=== PATIENT | female | born 1930 | race Caucasian/White ===

== ENCOUNTER 2016-10-25 22:16 | Observation (INO) ==
[2016-10-25] MEDS ORDERED: ALTEPLASE IVP ONE (22:25)
[2016-10-25] MEDS ORDERED: ALTEPLASE IVPB ONE (22:25)
--- NOTE | 2016-10-25 22:38 | Emergency Department Note ---
Disposition Clinical Impression: Thyroid nodule CVA (cerebral vascular accident) Qualifiers: CVA mechanism: unspecified Qualified Code(s): I63.9 - Cerebral infarction, unspecified Disposition: Admitted As Inpatient Condition: Good Referrals: Priscilla Barker MD [Primary Care Provider] - Forms: ED Satisfaction Letter Neuro HPI - General Chief Complaint: ED Neuro Symptoms/Deficit Stated Complaint: Vision changes and facial numbness Time Seen by Provider: 10/25/16 22:25 Source: patient Mode of arrival: private vehicle Limitations: no limitations Nursing Notes Reviewed: Yes Vital Signs Reviewed: Yes - History of Present Illness HPI Narrative: 85-year-old female presents to the ER with a chief complaint of visual changes and right facial numbness. Patient reports she was watching TV this evening when she noted blurry vision. She states she got up with her noticed that she had a right facial droop. Patient drove herself to the ER for evaluation. She denies a history of previous CVA in the past. Symptoms began at 8 PM. She was previously on anticoagulation for A. fib in the hospital but that resolved and she stopped anticoagulation. She complains of visual changes and right facial droop. No other complaints. Onset of Symptoms Date: 10/25/16 Onset of Symptoms Time: 20:00 Symptom Onset Unknown: No Location: right face History of same: No Severity: mild Symptoms Improving: No Improves with: none Worsens with: none Context: sudden onset On Anticoagulants: No Associated symptoms: Reports: denies other symptoms Treatments Prior to Arrival: none - Related Data Home Medications: Home Medications Medication Instructions Recorded Confirmed Calcium Carbonate [Calcium] 600 mg PO BID 03/07/16 04/14/16 Cholecalciferol (D-3) [Vitamin D] 1,000 unit PO DAILY 03/07/16 04/14/16 Diclofenac Sodium [Voltaren] 2 gm TD QID 03/07/16 04/14/16 Fenoprofen Calcium 600 mg PO BID 03/07/16 04/14/16 Multivit-Min/FA/Lycopen/Lutein 1 tab PO DAILY 03/07/16 04/14/16 [Centrum Silver Tablet] [place]-3/Dha/Epa/Fish Oil [Fish Oil 1 cap PO HS 03/07/16 04/14/16 1,000 mg Softgel] Solifenacin Succinate [Vesicare] 2.5 mg PO DAILY 03/07/16 04/14/16 Spironolactone [Aldactone] 50 mg PO DAILY 03/07/16 04/14/16 Previous Rx's Medication Instructions Recorded Ciprofloxacin [Cipro] 500 mg PO BID #14 tablet 04/17/16 OxyCODONE/APAP 5/325 [Percocet 0.5 tab PO HS #20 tablet 04/17/16 5/325 MG] Rivaroxaban [Xarelto] 15 mg PO DAILY #30 tablet 04/17/16 Triamcinolone Acet Dentl Paste 20 appl DT TID #1 tube 08/11/16 [Kenalog In Orabase] Allergies/Adverse Reactions: Allergies Allergy/AdvReac Type Severity Reaction Status Date / Time cephalexin [From Keflex] AdvReac YEAST Verified 03/07/16 10:10 INFECTION Cephalosporins AdvReac CONFUSED Verified 03/07/16 10:10 diazepam [From Valium] AdvReac CONFUSED Verified 03/07/16 10:10 gabapentin [From Neurontin] AdvReac CONFUSED Verified 03/07/16 10:10 ibuprofen [From Motrin] AdvReac SHORTNESS Verified 03/07/16 10:10 OF BREATH meloxicam [From Mobic] AdvReac CONFUSED Verified 03/07/16 10:10 meperidine [From Demerol] AdvReac Hypotension Verified 03/07/16 10:10 morphine AdvReac makes her Verified 03/07/16 10:10 sleep nifedipine AdvReac RAISED Verified 03/07/16 10:10 BLOOD PRESSURE pregabalin [From Lyrica] AdvReac SWELLING Verified 03/07/16 10:10 All systems ED: reviewed and negative except as stated. Eyes: Reports: vision change Cardiovascular: Denies: chest pain Respiratory: Denies: dyspnea Gastrointestinal: Denies: abdominal pain, nausea, vomiting Musculoskeletal: Reports: neck pain Neurological: Denies: headache, numbness, paresthesias Past Medical History - Past Medical History Attestation: Yes The following information was validated with the patient. Source: patient Medical history: Reports: other Surgical history: Reports: non-contributory Psychiatric history: Reports: no psych history BUTCHER HEAD history: Reports: no BUTCHER HEAD history - Social History Smoking Status: Never smoker Smokeless Tobacco Status: No Alcohol use: Reports: none Drug use: Reports: none Physical Exam - General Limitations: no limitations General appearance: alert, in no apparent distress - Head Head exam: atraumatic, normocephalic, normal inspection - Eye Eye exam: Present: normal appearance, PERRL, EOMI, miosis - ENT ENT exam: normal exam - Neck Neck exam: Present: normal inspection, full ROM - Chest Chest inspection: Present: normal inspection, symmetric chest wall rise - Respiratory Respiratory exam: Present: normal lung sounds bilaterally - Cardiovascular Cardiovascular exam: Present: regular rate, normal rhythm, normal heart sounds - Abdominal Exam Abdominal exam: Present: soft, Non-Tender. Absent: tenderness - Extremities Exam Extremities exam: Present: normal inspection, full ROM - Expanded Upper Extremity Exam Shoulder exam: Present: normal inspection, full ROM Arm exam: Present: normal inspection, full ROM Elbow exam: Present: normal inspection, full ROM Forearm/Wrist exam: Present: normal inspection, full ROM Hand exam: Present: normal inspection, full ROM - Expanded Lower Extremity Exam Hip/Pelvis exam: Present: normal inspection, full ROM Upper leg exam: Present: normal inspection, full ROM Knee exam: Present: normal inspection, full ROM Lower leg exam: Present: normal inspection, full ROM Ankle exam: Present: normal inspection, full ROM Foot/toe exam: Present: normal inspection, full ROM Neurovascular/Tendon exam: Absent: motor deficit, sensory deficit - Neurological Exam Neurological exam: Present: alert, oriented X3, CN II-XII intact (With the exception of decreased sensation in the mandibular portion of V5.) - Expanded Neurological Exam Patient oriented to: Present: person, place, time Speech: Present: fluid speech Cranial nerves: EOM function (II, III, IV, ): Normal, facial sensation (V): Abnormal Right, spinal accessory function (XI): Normal, tongue deviation (XII): Normal Cerebellar function: finger to nose: Normal, heel to alonso: Normal Motor strength - LUE: 5/5 Motor strength - RUE: 5/5 Motor strength - LLE: 5/5 Motor strength - RLE: 5/5 Upper motor neuron exam: thang neglect: Absent bilaterally, pronator drift: Absent bilaterally Sensory exam upper extremity: light touch: Normal Sensory exam lower extremity: light touch: Abnormal Left, Abnormal Right ( Chronic from neuropathy) Coma Scale Eye Opening: Spontaneous Coma Scale Motor Response: Obeys Commands Coma Scale Verbal Response: Oriented Coma Scale Total: 15 - Psychiatric Psychiatric exam: Present: normal affect, normal mood - Skin Skin exam: Present: warm, dry, intact, normal color Course Course Narrative: Patient seen and examined. Vital signs reviewed. Patient was deemed a stroke alert candidate upon presentation and will get a full workup including an emergent CT of the head. We will be in consultation with [facility] neurology. - Reevaluation(s) Reevaluation #1: I discussed results of the head CT with the patient and that we would need an angiogram - Consultations Consultation #1: I spoke with the on-call stroke neurologist at [facility]. Discussed patient's history CT findings exam. They report that the patient is not a candidate for TPA at this time. They do recommend a stat CT of the head and neck to evaluate for thrombus burden that would be potentially reversible with intervention. Patient will go for emergent angiography of the head and neck. If this is negative she will be admitted here for further neuro workup. Vital Signs Temperature 97.4 F L 10/25/16 22:17 Pulse Rate 81 10/25/16 22:17 Respiratory Rate 20 10/25/16 22:17 Blood Pressure 169/93 10/25/16 22:17 O2 Sat by Pulse Oximetry 97 10/25/16 22:17 Temperature 97.4 F L 10/25/16 22:17 Pulse Rate 101 10/25/16 22:53 Respiratory Rate 16 10/25/16 22:53 Blood Pressure 135/91 10/25/16 22:53 O2 Sat by Pulse Oximetry 100 10/25/16 22:47 Oxygen Delivery Oxygen Delivery Room Air Neuro Symptoms/Deficit - MDM Narrative Medical decision making narrative: 85-year-old female presents to the ER due to visual changes and right facial droop and decreased sensation. Occurred p.m. this evening. She was a stroke alert was immediately evaluated. CT of the head was unremarkable for acute pathology. This case was discussed with the on-call stroke neurologist at [facility] who reported the patient was not a candidate for TPA and recommended a stat CT of the head and neck. There is no evidence of occlusion or stenosis by the radiologist read we will keep the patient here for full neurologic workup and admitted to the hospitalist service. Patient was given aspirin in the ED as per the stroke neurologist recommendation. - Lab Data Lab results reviewed: Yes I reviewed the patient's lab results. Result diagrams: 10/25/16:44 10/25/16 22:44 Lab Results 10/25/16 10/25/16 10/25/16 Range/Units 22:20 22:44 22:44 WBC 6.7 (4.3-11.1) K/mcL RBC 4.09 (3.82-4.97) M/mcL Hgb 12.7 (11.5-15.4) g/dL Hct 38.7 (35.3-44.9) % MCV 94.6 (83.0-100.0) fL MCH 31.1 (28.0-33.3) pg MCHC 32.8 (31.6-35.5) g/dL RDW 12.8 (11.5-14.5) % Plt Count 298 (140-400) K/mcL MPV 8.2 L (9.4-12.4) fL Immature Gran % 0.2 (0-4) % Seg Neutrophils % 40.3 % Lymphocytes % 41.3 % Monocytes % 11.4 % Eosinophils % 5.7 % Basophils % 1.1 % Neutrophils # 2.7 (1.6-8.9) K/mcL Lymphocytes # 2.8 (0.6-4.6) K/mcL Monocytes # 0.8 (0.0-1.3) K/mcL Eosinophils # 0.4 (0.0-0.6) K/mcL Basophils # 0.1 (0.0-0.2) K/mcL Immature Plt Fraction 0.8 L (1.1-6.1) % PT 10.0 (9.4-12.1) Seconds INR 0.9 APTT 27.5 (26.0-36.0) Seconds Sodium (136-145) mEq/L Potassium (3.5-4.5) mEq/L Chloride (98-109) mEq/L Carbon Dioxide (19-29) mEq/L BUN (7-20) mg/dL Creatinine (0.57-1.11) mg/dL Est GFR ( Amer) (> 60) Est GFR (Non-Af Amer) (> 60) BUN/Creatinine Ratio (6-26) Glucose (70-99) mg/dL POC Glucose 98 H (58-89) Calculated Osmolality (280-300) Calcium (8.6-10.8) mg/dL Troponin I (0-0.03) ng/mL 10/25/16 10/25/16 Range/Units 22:44 22:44 WBC (4.3-11.1) K/mcL RBC (3.82-4.97) M/mcL Hgb (11.5-15.4) g/dL Hct (35.3-44.9) % MCV (83.0-100.0) fL MCH (28.0-33.3) pg MCHC (31.6-35.5) g/dL RDW (11.5-14.5) % Plt Count (140-400) K/mcL MPV (9.4-12.4) fL Immature Gran % (0-4) % Seg Neutrophils % % Lymphocytes % % Monocytes % % Eosinophils % % Basophils % % Neutrophils # (1.6-8.9) K/mcL Lymphocytes # (0.6-4.6) K/mcL Monocytes # (0.0-1.3) K/mcL Eosinophils # (0.0-0.6) K/mcL Basophils # (0.0-0.2) K/mcL Immature Plt Fraction (1.1-6.1) % PT (9.4-12.1) Seconds INR APTT (26.0-36.0) Seconds Sodium 138 (136-145) mEq/L Potassium 4.4 (3.5-4.5) mEq/L Chloride 105 (98-109) mEq/L Carbon Dioxide 25 (19-29) mEq/L BUN 28 H (7-20) mg/dL Creatinine 1.31 H (0.57-1.11) mg/dL Est GFR ( Amer) 47 L (> 60) Est GFR (Non-Af Amer) 39 L (> 60) BUN/Creatinine Ratio 21 (6-26) Glucose 90 (70-99) mg/dL POC Glucose (58-89) Calculated Osmolality 291 (280-300) Calcium 10.9 H (8.6-10.8) mg/dL Troponin I 0.01 (0-0.03) ng/mL - Radiology Data Radiology results reviewed: Yes I reviewed the patient's radiology results. Head CT 10/25/16 22:25 IMPRESSION: No acute intracranial abnormality. Findings were discussed with Thom Westfall at 10:51 pm on 10/25/2016. D/ / Jan Mancilla MD / Jan Mancilla MD Interpreting Provider: Jan Mancilla MD Head CTA 10/25/16 22:55 IMPRESSION: 1. No flow limiting stenosis or branch occlusion identified within the head or neck. 2. Incidentally noted thyroid nodule. RECOMMENDATIONS: Managing Incidental Thyroid Nodule Detected at CT or MRI or US 1. Further evaluation by thyroid Ultrasound recommended for these incidental nodules: Patient Age 18 years or less - Any nodule. Patient Age 19-34 years old - Nodule 1 cm in size or greater Patient Age 35 years or more - Nodule 1.5 cm in size or greater 2. Follow up thyroid ultrasound also recommend in these scenarios -Solitary nodule with high risk imaging features (locally invasive nodule or suspicious lymph nodes) -Any nodule in a heterogeneous enlarged thyroid gland 3. NO further imaging is recommended in the following scenarios -No f/u imaging is recommended for ITNs not meeting the above criteria. -No US or f/u recommended for ITNs without high risk features in pts. with limited life expectancy or significant co-morbidities, unless clinically warranted. Note: These recommendations do not apply to pts. w/ increased risk for thyroid cancer or pts. with symptomatic thyroid disease. Recommendations for f/u of Incidental Thyroid Nodules (ITN) found on CT, MR, NM and Extrathyroidal US are based upon the ACR white paper and [place] 3-tiered system for managing ITNs: J Am Cindy Radiol. 2015 Jun;12(2): 143-50 D/ / Desmond Maria MD / Desmond Maria MD Interpreting Provider: Desmond Maria MD Neck CTA 06/15/17 22:55 IMPRESSION: 1. No flow limiting stenosis or branch occlusion identified within the head or neck. 2. Incidentally noted thyroid nodule. RECOMMENDATIONS: Managing Incidental Thyroid Nodule Detected at CT or MRI or US 1. Further evaluation by thyroid Ultrasound recommended for these incidental nodules: Patient Age 18 years or less - Any nodule. Patient Age 19-34 years old - Nodule 1 cm in size or greater Patient Age 35 years or more - Nodule 1.5 cm in size or greater 2. Follow up thyroid ultrasound also recommend in these scenarios -Solitary nodule with high risk imaging features (locally invasive nodule or suspicious lymph nodes) -Any nodule in a heterogeneous enlarged thyroid gland 3. NO further imaging is recommended in the following scenarios -No f/u imaging is recommended for ITNs not meeting the above criteria. -No US or f/u recommended for ITNs without high risk features in pts. with limited life expectancy or significant co-morbidities, unless clinically warranted. Note: These recommendations do not apply to pts. w/ increased risk for thyroid cancer or pts. with symptomatic thyroid disease. Recommendations for f/u of Incidental Thyroid Nodules (ITN) found on CT, MR, NM and Extrathyroidal US are based upon the ACR white paper and [place] 3-tiered system for managing ITNs: J Am Cindy Radiol. 2014;12(2): 143-50 D/ / Desmond Maria MD / Desmond Maria MD Interpreting Provider: Desmond Maria MD Stroke Scale - Level of Consciousness LOC: Alert - LOC Questions LOC Questions: Answers both correctly - LOC Commands LOC Commands: Performs both correctly - Best Gaze Best Gaze: Normal - Visual Visual: No visual loss - Facial Palsy Facial Palsy: Minor asymmetry on smiling, flattened nasolabial fold - Motor Arms Motor Arm-Left: No drift for 10 seconds Motor Arm-Right: No drift for 10 seconds - Motor Legs Motor Leg-Left: No drift for 5 seconds Motor Leg-Right: No drift for 5 seconds - Limb Ataxia Limb Ataxia: Absent of affected limb too weak to perform exam - Sensory Sensory: Mild to moderate loss, "not as sharp" - Best Language Best Language: No aphasia - Dysarthria Dysarthria: Normal - Extinction and Inattention Extinction and Inattention: Normal - NIHSS Total Score NIHSS Total Score: 2 Critical Care Time Critical Care Time: Yes Total Critical Care Time: 35 Attestation: Critical care time 35 minutes. Wilfred - Wilfred Situation: Demographics, MOA Background: Presenting Complaint, Relevant PMH, Meds, & Allergies Assessment: Course and respsone to treatment, Exam Concerns, Patient/Family Expectation, Pertinant Lab Results, Outstanding Labs Recommendation: Barrier(s) to disposition, Recommendation based on pending studies, treatments, or consults S.[email or web address].Luke Report Given to: Dr. Melendez Attestation Statement - Attestation Attestation: Patient was seen with resident physician. I reviewed the history, physical, assessment and plan, and agree with the findings. I also personally evaluated this patient and had [id number] time with this patient. 85-year-old female presents to emergency department with right-sided facial droop and changes to the vision on the right side. Patient has a history of CVA in the past. Is uncertain if she is currently on any blood thinners. She has had also A. fib in the past. Said symptoms started approximately 8:00 tonight while she was watching TV. The continued since then. She is ambulatory and able to move her upper extremities without difficulty. She said she just feels that the right side of her face is numb and immobile. No fevers chills nausea vomiting diarrhea. On exam vital signs stable ENT patient has facial droop on the right side. Heart normal. Lungs normal. Abdomen soft and nontender. Extremities show no acute abnormalities. Neurologically patient is facial droop which is not vision to the right side and some slightly slurred speech. She has decreased strength in the right upper and left upper and lower extremities. No other deficits were noted. ED course, stroke protocol was activated. Initial head CT scan shows no acute abnormality. Neurology did not feel patient was at candidate for TPA based on the limited symptoms, but wanted a stat head and neck CTA to rule out possible clots. If that is negative we will plan on admitting to the hospital here for neuro checks and further evaluation of that is positive we will send for interventional treatment. CT of the head and neck did not reveal any acute abnormalities that require interventional therapies, so patient was stable for admission to [facility]. Hospitalist service was notified. Patient was given an aspirin as per request of neurology. Hemodynamically patient remained stable while in the emergency department. I agree with resident physician assessment and plan. Critical care time 35 minutes.
[2016-10-25 22:51] LABS: Basophils # 0.1 K/mcL (0.0-0.2); Basophils % 1.1 %; Eosinophils # 0.4 K/mcL (0.0-0.6); Eosinophils % 5.7 %; Hematocrit 38.7 % (35.3-44.9); Hemoglobin 12.7 g/dL (11.5-15.4); Immature Granulocytes % 0.2 % (0-4); Immature Platelets 0.8 % (1.1-6.1); Lymphocytes # 2.8 K/mcL (0.6-4.6); Lymphocytes % 41.3 %; Mean Corpuscular HGB Conc 32.8 g/dL (31.6-35.5); Mean Corpuscular Hemoglobin 31.1 pg (28.0-33.3); Mean Corpuscular Volume 94.6 fL (83.0-100.0); Mean Platelet Volume 8.2 fL (9.4-12.4); Monocytes # 0.8 K/mcL (0.0-1.3); Monocytes % 11.4 %; Neutrophils # 2.7 K/mcL (1.6-8.9); Red Blood Count 4.09 M/mcL (3.82-4.97); Red Cell Distribution Width 12.8 % (11.5-14.5); Segmented Neutrophils % 40.3 %
[2016-10-25 22:54] LABS: Platelet Count 298 K/mcL (140-400)
[2016-10-25 22:57] LABS: INR 0.9
[2016-10-25] MEDS ORDERED: Aspirin 81 MG TAB.CHEW PO STA (22:57)
[2016-10-25 23:00] LABS: Activated Partial Thrombo Time 27.5 Seconds (26.0-36.0)
[2016-10-25] MEDS ORDERED: 0.9 % Sodium Chloride 1,000 ML IVC ONE (23:01)
[2016-10-25 23:02] LABS: Calcium 10.9 mg/dL (8.6-10.8); Potassium 4.4 mEq/L (3.5-4.5)
--- NOTE | 2016-10-26 04:24 | Internal Med History&Physical ---
Date of Encounter: 10/26/16 Time of Encounter: 03:00 Assessment and Plan (1) Weakness on right side of face Current visit: Yes Status: Acute Right facial weakness with sparing of forehead. Will obtain MRI of brain, echo and carotid doppler; Neurology consult, speech therapy and PT. (2) Paroxysmal atrial fibrillation Current visit: Yes Status: Chronic Pt apparently had adverse reaction to anticoagulation with xarelto and discontinued by herself. 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 Barfield is a 85 year old female reports blurry vision in the right eye, that started last night at about 8 PM. She tried to adjust her glasses. She reports that she got up and thought that her eye was looking bigger and noticed right facial droop. She feels that her right side of the upper lip feels like liver. She denies drooling, difficulty swallowing, difficulty breathing, chest pain, shortness of breath, nausea, vomiting, abdominal pain, dysuria, hematuria, bowel changes. She denies weakness of the limbs, incontinence of urine or feces. She reports pain in occipital area. She was previously on anticoagulation for A. fib but been off anticoagulation for about 2 months. She was evaluated in the emergency department and the ER physician discussed with on-call stroke neurologist at [facility] pt was given aspirin. No TPA was recommended. She is admitted to the hospitalist service for further workup and management. Past Med Surg Social Fam HX - Past Medical History Medical history: other Psychiatric history: no psych history - Past Surgical History Surgical History: non-contributory - Social History Smoking Status: Never smoker Smokeless Tobacco Status: No Alcohol use: none Drug use: none - Additional Family History Additional family history: Family h/o Stroke present Internal Medicine - H&P: Meds Cholecalciferol (D-3) [Vitamin D] 1,000 unit PO DAILY 03/07/16 [History] Fenoprofen Calcium 600 mg PO BID 03/07/16 [History] Multivit-Min/FA/Lycopen/Lutein [Centrum Silver Tablet] 1 tab PO DAILY 03/07/16 [ History] [place]-3/Dha/Epa/Fish Oil [Fish Oil 1,000 mg Softgel] 1 cap PO HS 03/07/16 [ History] Spironolactone [Aldactone] 50 mg PO DAILY 03/07/16 [History] Ascorbate Calcium [Vitamin C] 500 mg PO DAILY 10/26/16 [History] Calcium Carbonate [Calcium] 600 mg PO DAILY 10/26/16 [History] Cyclobenzaprine [Flexeril] 10 mg PO HS 10/26/16 [History] Diclofenac Sodium [Voltaren] 1 appl TP QID 10/26/16 [History] Levomefolate/B6/B12/Algal Oil [Metanx Capsule] 1 cap PO DAILY 10/26/16 [History] Oxybutynin Chloride [Ditropan Xl] 10 mg PO DAILY 10/26/16 [History] Oxycodone HCl/Acetaminophen [Percocet 5-325 mg Tablet] 0.5 each PO BID PRN 10/26 [History] Rivaroxaban [Xarelto] 15 mg PO DAILY 10/26/16 [History] Tolterodine LA (24 HR) [Detrol LA] 4 mg PO DAILY 10/26/16 [History] Allergies cephalexin [From Keflex] Adverse Reaction (Verified 03/07/16 10:10) YEAST INFECTION Cephalosporins Adverse Reaction (Verified 03/07/16 10:10) CONFUSED diazepam [From Valium] Adverse Reaction (Verified 03/07/16 10:10) CONFUSED gabapentin [From Neurontin] Adverse Reaction (Verified 03/07/16 10:10) CONFUSED ibuprofen [From Motrin] Adverse Reaction (Verified 03/07/16 10:10) SHORTNESS OF BREATH meloxicam [From Mobic] Adverse Reaction (Verified 03/07/16 10:10) CONFUSED meperidine [From Demerol] Adverse Reaction (Verified 03/07/16 10:10) Hypotension morphine Adverse Reaction (Verified 03/07/16 10:10) makes her sleep nifedipine Adverse Reaction (Verified 03/07/16 10:10) RAISED BLOOD PRESSURE pregabalin [From Lyrica] Adverse Reaction (Verified 03/07/16 10:10) SWELLING All Systems PM: A 10-system review of systems was performed and is negative for pertinent findings except as documented above in the HPI. - Constitutional Vitals: Temp Pulse Resp BP Pulse Ox 98.3 F 97 16 176/108 97 10/26/16 01:45 10/26/16 01:45 10/26/16 01:45 10/26/16 01:45 10/26/16 01:23 Exam: General: Not in acute distress at the time of my evaluation HEENT: Oral mucosa is moist. No conjunctival palor or scleral icterus Neck: No obvious neck swellings Lungs: Clear to auscultation Cardiac: Regular rate and rhythm. No significant murmurs Abdomen: Soft, non tender. Bowel sounds present Genitourinary: No lynch catheter Neurological: Alert and oriented. 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 No gross weakness of the extremities Psych: Not aggressive or agitated Extremities: no significant leg edema Skin: No generalized rash Internal Med - H&P Results - Labs CBC & Chem 7: 10/25/16 22:44 10/27/16 04:51 - EKG Data -: EKG Interpreted by Myself EKG shows normal: sinus rhythm Rate: normal - Impressions ITS Impressions Head CT 10/25/16 22:25 IMPRESSION: No acute intracranial abnormality. Findings were discussed with Thom Westfall at 10:51 pm on 10/25/2016. D/ / Jan Mancilla MD / Jan Mancilla MD Interpreting Provider: Jan Mancilla MD Head CTA 10/25/16 22:55 IMPRESSION: 1. No flow limiting stenosis or branch occlusion identified within the head or neck. 2. Incidentally noted thyroid nodule. RECOMMENDATIONS: Managing Incidental Thyroid Nodule Detected at CT or MRI or US 1. Further evaluation by thyroid Ultrasound recommended for these incidental nodules: Patient Age 18 years or less - Any nodule. Patient Age 19-34 years old - Nodule 1 cm in size or greater Patient Age 35 years or more - Nodule 1.5 cm in size or greater 2. Follow up thyroid ultrasound also recommend in these scenarios -Solitary nodule with high risk imaging features (locally invasive nodule or suspicious lymph nodes) -Any nodule in a heterogeneous enlarged thyroid gland 3. NO further imaging is recommended in the following scenarios -No f/u imaging is recommended for ITNs not meeting the above criteria. -No US or f/u recommended for ITNs without high risk features in pts. with limited life expectancy or significant co-morbidities, unless clinically warranted. Note: These recommendations do not apply to pts. w/ increased risk for thyroid cancer or pts. with symptomatic thyroid disease. Recommendations for f/u of Incidental Thyroid Nodules (ITN) found on CT, MR, NM and Extrathyroidal US are based upon the ACR white paper and [place] 3-tiered system for managing ITNs: J Am Cindy Radiol. 2015 Jun;12(2): 143-50 D/ / Desmond Maria MD / Desmond Maria MD Interpreting Provider: Desmond Maria MD Neck CTA 10/25/16 22:55
[2016-10-26] MEDS ORDERED: Naloxone 0.4 MG/ML INJ IVP PRN (04:35)
[2016-10-26] MEDS ORDERED: *HR* OxyCODONE/APAP 5/325 TABLET PO ONE (05:52)
[2016-10-26] MEDS ORDERED: Acetaminophen IV 500 MG/50 ML INFUS..BTL IVPB ONE (06:20)
--- NOTE | 2016-10-26 09:00 | Internal Med Progress Note ---
<Koby Delvalle - Last Filed: 10/26/16 14:05> Date of Encounter: 10/26/16 Time of Encounter: 09:00 - Assessment and plan (1) Facial droop Current Visit: Yes Status: Acute Assessment and plan: Brain MRI showed no acute process, CTA of head/neck showed no acute process, lipid panel showed hyperlipidemia, echo showed left ventricular ejection fraction 55%, normal left ventricular chamber size, wall thickness and function , mild left ventricular diastolic dysfunction, normal right ventricular structure and function, no evidence of PFO or pulmonary hypertension, no significant valvular dysfunction, possible TIA or other neurological etiologies , neurology service was consulted, patient was started on baby aspirin and Lipitor daily. (2) Chronic kidney disease, stage III (moderate) Current Visit: Yes Status: Acute Assessment and plan: Renal function at baseline, continue to avoid nephrotoxic agent and monitor her renal function. (3) Hyperlipidemia Current Visit: Yes Status: Acute Assessment and plan: Lipid panel reviewed, will start her on Lipitor. Qualifiers: Qualified Code(s): E78.5 - Hyperlipidemia, unspecified (4) Paroxysmal atrial fibrillation Current Visit: Yes Status: Chronic Assessment and plan: By looking at patient's home medication's list, patient is not taking any AV jurgen blocking agents to control her heart, she states that she stopped taking xarelto because of allergic reaction to it, we will talk to her about other choice of anticoagulation medication. (5) Thyroid nodule Current Visit: Yes Status: Acute Assessment and plan: Incidental finding of thyroid nodule 3 cm, will order thyroid ultrasound. (6) DVT prophylaxis Current Visit: No Status: Acute Assessment and plan: Heparin subcutaneous twice a day. - Subjective Interval history: Patient seen and examined. Patient still has a right-sided facial droop and slight difficulty closing right side of the eye, slight tingling/numbness in the right side of her upper lip, denies weakness/tingling/numbness of upper/ lower extremities. - Constitutional Vitals: Temp Pulse Resp BP Pulse Ox 98.1 F 97 24 137/83 94 10/26/16 07:25 10/26/16 07:25 10/26/16 07:25 10/26/16 07:25 10/26/16 07:25 General appearance: Present: cooperative, A&O X 3, pleasant, no acute distress, answers questions appropriately - Head Head exam: Present: atraumatic, normocephalic - Eye Eye exam: Present: PERRL, conjuntiva pink, sclera anicteric Pupils: Present: PERRL - Neck Neck exam general surgery: Present: supple, trachea midline. Absent: lymphadenopathy - Respiratory Respiratory exam: Present: CTAB. Absent: accessory muscle use, rales, rhonchi, wheezes - Cardiovascular Cardiovascular exam: Present: RRR, +S1, +S2. Absent: diastolic murmur, gallop, rubs, systolic murmur - GI/Abdominal GI/Abdominal exam: Present: normal bowel sounds, soft, no peritoneal signs. Absent: distended, tenderness - Extremities Exam Extremities exam: Present: warm, radial pulses palpable and symetrical. Absent : calf tenderness, cyanotic, pedal edema - Neurological Exam Neurological exam: Present: alert, CN II-XII intact, oriented X3, strengths equal and symetr throughout, facial droop (Right side). Absent: altered, pronater drift, speech deficit Additional comments: Slight difficulty closing her right side of the eyes - Skin Skin exam: Present: dry, intact Internal Medicine: Result - Labs CBC & Chem 7: 10/25/16 22:44 10/26/16 08:57 - ABG Interpretation ABG results: PT/INR, D-dimer PT 10.0 Seconds (9.4-12.1) 10/25/16 22:44 Consult Discharge Plan - Plan Referrals: Priscilla Barker MD [Primary Care Provider] - <Miles Moore - Last Filed: 10/26/16 15:38> Date of Encounter: 10/26/16 - Constitutional Vitals: Temp Pulse Resp BP Pulse Ox 97.6 F 94 25 142/82 91 10/26/16 13:00 10/26/16 13:00 10/26/16 13:00 10/26/16 13:00 10/26/16 12:18 Internal Medicine: Result - Labs CBC & Chem 7: 10/25/16 22:44 10/26/16 08:57 Labs: BMP 10/26/16 08:57 Sodium 141 Potassium 4.2 Chloride 109 Carbon Dioxide 25 BUN 24 H Creatinine 1.14 H Glucose 90 Calcium 10.3 Urine 10/26/16 Range/Units 12:00 Urine Color Yellow (Yellow) Urine Clarity Clear (Clear) Urine pH 7.5 (5.0-8.0) pH Units Ur Specific [place] 1.025 (1.010-1.025) Urine Protein Negative (Neg-Trace) mg/dL Urine Glucose (UA) Normal (Normal) mg/dL - ABG Interpretation ABG results: PT/INR, D-dimer PT 10.0 Seconds (9.4-12.1) 10/25/16 22:44 - Impressions Impressions Brain MRI 10/26/16 04:40 IMPRESSION: 1. No acute intracranial abnormality. No acute infarct. 2. Mild global parenchymal volume loss with minimal chronic microvascular ischemic change. D/ / Mendel Iglesias MD / Mendel Iglesias MD Interpreting Provider: Mendel Iglesias MD Thyroid Ultrasound 10/26/16 14:30 IMPRESSION: There is a 3.6 cm solid nodule with microcalcification in the right lobe. Further evaluation with FNA is recommended. RECOMMENDATIONS: Ultrasound Feature Recommendation Microcalcifications: Strongly consider US-guided FNA if greater than or equal to 1.0 cm Solid (or almost entirely solid) and/or coarse calcifications: Strongly consider US-guided FNA if greater than or equal to 1.5 cm Mixed solid and cystic, or almost entirely cystic with solid mural component: Consider US-guided FNA if greater than or equal to 2.0 cm Substantial growth since prior US exam: Consider US-guided FNA Almost entirely cystic and none of the above and no substantial growth (or no prior US): US-guided FNA probably unnecessary Multiple nodules: Consider US-guided FNA of one or more nodules, with selection prioritized on basis of criteria (in order listed) for solitary nodule FNA is likely unnecessary in a diffusely enlarged gland with multiple nodules of similar US appearance without intervening normal parenchyma. Source: Eli et. al. Management of Thyroid Nodules Detected at Ultrasound, SRU Consensus Conference Statement. Radiology 2005;237:794-800 and Ultrasound Quarterly 2006;22:231-240. D/ / Roland Shetty MD / Roland Shetty MD Interpreting Provider: Roland Shetty MD - Attending Attestation I saw and examined pt. I have discussed with Resident Dr Delvalle regarding pt's management plan. I agree with the documentation.
[2016-10-26] MEDS: Multivit/Ca/Min/Fe/FA 1 TAB TABLET PO SCH (09:04)
[2016-10-26] MEDS: Cholecalciferol (D-3) 1,000 UNIT TABLET PO SCH (09:04)
[2016-10-26 10:10] LABS: Calcium 10.3 mg/dL (8.6-10.8); Potassium 4.2 mEq/L (3.5-4.5)
[2016-10-26 10:12] LABS: Chol/HDL Ratio 5.8 (0-4.9)
[2016-10-26] MEDS: Aspirin 81 MG TAB.CHEW PO SCH (10:56)
[2016-10-26] MEDS ORDERED: *HR* OxyCODONE/APAP 5/325 TABLET PO PRN (13:24)
[2016-10-26 14:31] LABS: Bilirubin,Urine Negative (Negative); Blood,Urine Negative (Negative); Clarity,Urine Clear (Clear); Color,Urine Yellow (Yellow); Glucose,Urine (UA) Normal (Normal); Ketones,Urine Negative (Negative); Leukocyte Esterase,Urine Negative (Negative); Nitrite,Urine Negative (Negative); PH,Urine 7.5 pH Units (5.0-8.0); Protein,Urine Negative (Neg-Trace); Specific Gravity,Urine 1.025 (1.010-1.025); Urobilinogen,Urine Normal (Normal)
--- NOTE | 2016-10-26 16:42 | Neurology - Consult Note ---
Date of Encounter: 10/26/16 Time of Encounter: 16:37 Assessment and Plan (1) Rea's palsy Current Visit: Yes Status: Acute Patient presents with lower motor neuron right facial weakness classic for Rea' s palsy. There is no other cranial nerve involvement. I thenk that the vision change she perceived was caused by redundant skin of the right brow partially obstructing the right visual field. Rea's palsy will frequently have an associated pain of the ipsilateral mastoid region. There is no clinical, or radiographic evidence of a cerebral infarct. I recommend checking her for lyme. Consider a week of oral acyclovir and a prednisone taper. She may need electro stim therapy after discharge. May d/c home at your discretion. History of Present Illness HPI: Ms. Barfield is a 85 year old female seen for neurologic evaluation secondary to right facial weakness. She states that the weakness onset fairly suddenly yesterday while she was trying to read. She felt that she had blurred vision as well as weakness of the right face.She also experienced intense pain involving the right mastoid region. She denies right facial numbness. Denies speech abnormalities. Denies weakness of the right arm or leg. She had MRI of the brain which was negative for acute infarct. CTA of head and neck were negative. Past Med Surg Social Fam HX - Past Medical History Medical history: other Psychiatric history: no psych history - Past Surgical History Surgical History: non-contributory - Social History Smoking Status: Never smoker Smokeless Tobacco Status: No Alcohol use: none Drug use: none Medications and Allergies Cholecalciferol (D-3) [Vitamin D] 1,000 unit PO DAILY 03/07/16 [History] Fenoprofen Calcium 600 mg PO BID 03/07/16 [History] Multivit-Min/FA/Lycopen/Lutein [Centrum Silver Tablet] 1 tab PO DAILY 03/07/16 [ History] [place]-3/Dha/Epa/Fish Oil [Fish Oil 1,000 mg Softgel] 1 cap PO HS 03/07/16 [ History] Spironolactone [Aldactone] 50 mg PO DAILY 03/07/16 [History] Ascorbate Calcium [Vitamin C] 500 mg PO DAILY 10/26/16 [History] Calcium Carbonate [Calcium] 600 mg PO DAILY 10/26/16 [History] Cyclobenzaprine [Flexeril] 10 mg PO HS 10/26/16 [History] Diclofenac Sodium [Voltaren] 1 appl TP QID 10/26/16 [History] Levomefolate/B6/B12/Algal Oil [Metanx Capsule] 1 cap PO DAILY 10/26/16 [History] Oxybutynin Chloride [Ditropan Xl] 10 mg PO DAILY 10/26/16 [History] Oxycodone HCl/Acetaminophen [Percocet 5-325 mg Tablet] 0.5 each PO BID PRN 10/26 [History] Rivaroxaban [Xarelto] 15 mg PO DAILY 10/26/16 [History] Tolterodine LA (24 HR) [Detrol LA] 4 mg PO DAILY 10/26/16 [History] Allergies cephalexin [From Keflex] Adverse Reaction (Verified 03/07/16 10:10) YEAST INFECTION Cephalosporins Adverse Reaction (Verified 03/07/16 10:10) CONFUSED diazepam [From Valium] Adverse Reaction (Verified 03/07/16 10:10) CONFUSED gabapentin [From Neurontin] Adverse Reaction (Verified 03/07/16 10:10) CONFUSED ibuprofen [From Motrin] Adverse Reaction (Verified 03/07/16 10:10) SHORTNESS OF BREATH meloxicam [From Mobic] Adverse Reaction (Verified 03/07/16 10:10) CONFUSED meperidine [From Demerol] Adverse Reaction (Verified 03/07/16 10:10) Hypotension morphine Adverse Reaction (Verified 03/07/16 10:10) makes her sleep nifedipine Adverse Reaction (Verified 03/07/16 10:10) RAISED BLOOD PRESSURE pregabalin [From Lyrica] Adverse Reaction (Verified 03/07/16 10:10) SWELLING All Systems: A 10-system review of systems was performed and is negative for pertinent findings except as documented above in the HPI. Review of Systems: 10 point review of is consistent with the history of present illness and is otherwise negative. Physical Examination - Vital Signs Vital Signs: Initial Vital Signs Temp Pulse Resp BP Pulse Ox 97.4 F L 81 20 169/93 97 10/25/16 22:17 10/25/16 22:17 10/25/16 22:17 10/25/16 22:17 10/25/16 22:17 Results - Laboratory Findings CBC and BMP: 10/25/16 22:44 10/26/16 08:57 Abnormal lab findings: Abnormal lab results MPV 8.2 fL (9.4-12.4) L 10/25/16 22:44 Immature Plt Fraction 0.8 % (1.1-6.1) L 10/25/16 22:44 BUN 24 mg/dL (7-20) H 10/26/16 08:57 Creatinine 1.14 mg/dL (0.57-1.11) H 10/26/16 08:57 Est GFR ( Amer) 55 (> 60) L 10/26/16 08:57 Est GFR (Non-Af Amer) 46 (> 60) L 10/26/16 08:57 POC Glucose 98 (58-89) H 10/25/16 22:20 Triglycerides 151 mg/dL (< 150) H 10/26/16 08:57 Cholesterol 276 mg/dL (< 200) H 10/26/16 08:57 LDL Cholesterol, Calc 198 mg/dL (0-99) H 10/26/16 08:57 Cholesterol/HDL Ratio 5.8 (0-4.9) H 10/26/16 08:57 Consult Discharge Plan - Plan Referrals: Priscilla Barker MD [Primary Care Provider] -
[2016-10-26] MEDS ORDERED: *HR* Heparin 5,000 UNIT/ML VIAL SQ SCH (18:00)
[2016-10-26] MEDS ORDERED: *HR* OxyCODONE/APAP 5/325 TABLET PO SCH (21:00)
[2016-10-26] MEDS ORDERED: (Omega-3/Dha/Epa/Fish Oil [Fish Oil 1,000 Mg Softgel]) PO SCH (21:00)
[2016-10-26] MEDS: predniSONE 20 MG TABLET PO SCH (21:19)
[2016-10-26] MEDS: Acyclovir 200 MG CAPSULE PO SCH ×2 (21:55→21:56)
[2016-10-26] MEDS: Artificial Tears SOLN 15 ML BOTTLE RIGHT EYE SCH (21:57)
[2016-10-27 06:11] LABS: Calcium 10.2 mg/dL (8.6-10.8); Potassium 4.6 mEq/L (3.5-4.5)
[2016-10-27 06:40] VITALS: BP 127/87
[2016-10-27] MEDS: Artificial Tears SOLN 15 ML BOTTLE RIGHT EYE SCH (08:34)
[2016-10-27] MEDS: Multivit/Ca/Min/Fe/FA 1 TAB TABLET PO SCH (08:34)
[2016-10-27] MEDS: predniSONE 20 MG TABLET PO SCH (08:34)
[2016-10-27] MEDS: Aspirin 81 MG TAB.CHEW PO SCH (08:34)
[2016-10-27] MEDS: Cholecalciferol (D-3) 1,000 UNIT TABLET PO SCH (08:35)
[2016-10-27] MEDS: Acyclovir 200 MG CAPSULE PO SCH ×2 (08:35→12:02)
--- NOTE | 2016-10-27 10:52 | Discharge Summary ---
Addendum entered and electronically signed by Koby Delvalle DO 10/27/16 11:10: Pt will con't to take baby ASA at home, she will get it from [facility]. Original Note: <Koby Delvalle - Last Filed: 10/27/16 10:46> Date of Encounter: 10/27/16 Time of Encounter: 10:46 - Discharge Diagnosis (1) Rea's palsy Priority: Primary Status: Acute (2) Facial droop Priority: Primary Status: Acute (3) Chronic kidney disease, stage III (moderate) Priority: Secondary Status: Acute (4) Hyperlipidemia Priority: Secondary Status: Acute Qualifiers: Qualified Code(s): E78.5 - Hyperlipidemia, unspecified (5) Paroxysmal atrial fibrillation Priority: Secondary Status: Chronic (6) Thyroid nodule Priority: Secondary Status: Acute (7) DVT prophylaxis Priority: Secondary Status: Acute - Discharge Medications Prescriptions: Acyclovir [Zovirax] 200 mg PO 5XD 6 Days Atorvastatin [Lipitor] 20 mg PO HS #30 tablet predniSONE [PredniSONE] 10 mg PO DAILY #40 tablet Home Medications: Cholecalciferol (D-3) [Vitamin D] 1,000 unit PO DAILY 03/07/16 [History] Fenoprofen Calcium 600 mg PO BID 03/07/16 [History] Multivit-Min/FA/Lycopen/Lutein [Centrum Silver Tablet] 1 tab PO DAILY 03/07/16 [ History] [place]-3/Dha/Epa/Fish Oil [Fish Oil 1,000 mg Softgel] 1 cap PO HS 03/07/16 [ History] Spironolactone [Aldactone] 50 mg PO DAILY 03/07/16 [History] Ascorbate Calcium [Vitamin C] 500 mg PO DAILY 10/26/16 [History] Calcium Carbonate [Calcium] 600 mg PO DAILY 10/26/16 [History] Cyclobenzaprine [Flexeril] 10 mg PO HS 10/26/16 [History] Diclofenac Sodium [Voltaren] 1 appl TP QID 10/26/16 [History] Levomefolate/B6/B12/Algal Oil [Metanx Capsule] 1 cap PO DAILY 10/26/16 [History] Oxybutynin Chloride [Ditropan Xl] 10 mg PO DAILY 10/26/16 [History] Oxycodone HCl/Acetaminophen [Percocet 5-325 mg Tablet] 0.5 each PO BID PRN 10/26 [History] Tolterodine LA (24 HR) [Detrol LA] 4 mg PO DAILY 10/26/16 [History] Acyclovir [Zovirax] 200 mg PO 5XD 6 Days 10/27/16 [Rx] Atorvastatin [Lipitor] 20 mg PO HS #30 tablet 10/27/16 [Rx] predniSONE [PredniSONE] 10 mg PO DAILY #40 tablet 10/27/16 [Rx] Allergies/Adverse Reactions: Allergies cephalexin [From Keflex] Adverse Reaction (Verified 03/07/16 10:10) YEAST INFECTION Cephalosporins Adverse Reaction (Verified 03/07/16 10:10) CONFUSED diazepam [From Valium] Adverse Reaction (Verified 03/07/16 10:10) CONFUSED gabapentin [From Neurontin] Adverse Reaction (Verified 03/07/16 10:10) CONFUSED ibuprofen [From Motrin] Adverse Reaction (Verified 03/07/16 10:10) SHORTNESS OF BREATH meloxicam [From Mobic] Adverse Reaction (Verified 03/07/16 10:10) CONFUSED meperidine [From Demerol] Adverse Reaction (Verified 03/07/16 10:10) Hypotension morphine Adverse Reaction (Verified 03/07/16 10:10) makes her sleep nifedipine Adverse Reaction (Verified 03/07/16 10:10) RAISED BLOOD PRESSURE pregabalin [From Lyrica] Adverse Reaction (Verified 03/07/16 10:10) SWELLING Procedures/tests Complete & Pending: Procedures Performed prior 72 hours Category Date Time Status thyroid ultrasound [US thyroid] [US] Routine Exams 10/26/16 14:30 Completed MR head/brain wo con [MR] Routine MRI 10/26/16 04:40 Completed ECG 12 lead ECG [ECG] Routine Y 10/26/16 01:19 Completed EV echocardiogram Routine Y 10/26/16 04:40 Completed Date of admission: 10/26/16 00:28 Primary care physician: Priscilla Arguello Consults: 10/26/16 04:40 Consult to Neurology [CONS] Routine Consulting Provider: [facility] Reason for Consult: Right facial weakness / CVA Call Completed: No Consult to Physical Therapy [CONS] Routine Comment: Evaluate, develop and implement POC Reason for Consult: eval and treat Consult to Speech Therapy [CONS] Routine Comment: Evaluate, develop and implement POC Reason for Consult: Right facial weakness / CVA Call Completed: No Discharging clinician: Koby Delvalle Anticipated date of discharge: 10/27/16 - Patient Status Disposition: Home, Self-Care Condition: Good Functional capacity at discharge: uses cane/walker (fall precaution) Overall status at discharge: patient is progressing back to baseline - Discharge Instructions Instructions: Prednisone (By mouth), Acyclovir (By mouth), Atorvastatin (By mouth), Rea Palsy (DC), Chronic Hypertension (DC) Follow Up With: Priscilla Barker MD [Primary Care Provider] - (Follow-up within a week for hospital discharge follow-up, discussed the option of anticoagulation therapy for history of paroxysmal atrial fibrillation, follow-up on Rea's palsy after she completed taking 1 week course of by mouth steroid taper and acyclovir medication, patient will also discuss incidental finding of thyroid nodule during this hospital stay and she will need fine-needle aspiration as outpatient.) - Diet and Activity Activity: resume usual activities as tolerated Diet: low fat, low cholesterol Hospital course: Ms. Barfield is a 85 year old female and hyperlipidemia who present to the ER with chief complaint of right-sided facial droop, patient was admitted to the hospital for possible TIA versus acute stroke, brain MRI showed no acute process , CTA of the head/neck showed no acute process, lipid panel showed hyperlipidemia, therefore patient was started on baby aspirin and statin, echo showed preserved ejection fraction, no evidence of PFO or pulmonary hypertension , neurology was consulted and from his point of view, patient might be having Rea's palsy on the right side. Patient was started on by mouth steroids and acyclovir, on the next day her facial droop significantly improved. Therefore patient will be discharged home today in stable condition with steroid taper and acyclovir by mouth for 1 week and close follow-up with her primary care physician, there was incidental finding of thyroid nodule during this hospital stay in which thyroid ultrasound showed a 3.6 cm solid nodule with microcalcification in the right lobe, patient will have further evaluation with fine needle aspiration as outpatient, patient will also discuss with her primary care physician for a choice of anticoagulation for history of paroxysmal atrial fibrillation, patient tried Xarelto in the past however she had allergic reaction to it and therefore she stopped taking it. - Time Spent with Patient Total time spent providing and/or coordinating discharge services: - Constitutional Vitals: Temp Pulse Resp BP Pulse Ox 97.7 F 98 15 127/87 93 10/27/16 06:37 10/27/16 06:37 10/27/16 06:37 10/27/16 06:37 10/27/16 06:37 General appearance: Present: cooperative, A&O X 3, pleasant, no acute distress, answers questions appropriately - Head Head exam: Present: atraumatic, normocephalic - Eye Eye exam: Present: PERRL, conjuntiva pink, sclera anicteric Pupils: Present: PERRL - Neck Neck exam general surgery: Present: supple, trachea midline. Absent: lymphadenopathy - Respiratory Respiratory exam: Present: CTAB. Absent: accessory muscle use, rales, rhonchi, wheezes - Cardiovascular Cardiovascular exam: Present: RRR, +S1, +S2. Absent: diastolic murmur, gallop, rubs, systolic murmur - GI/Abdominal GI/Abdominal exam: Present: normal bowel sounds, soft, no peritoneal signs. Absent: distended, tenderness - Extremities Exam Extremities exam: Present: warm, radial pulses palpable and symetrical. Absent : calf tenderness, cyanotic, pedal edema - Neurological Exam Neurological exam: Present: alert, CN II-XII intact, oriented X3, no focal deficits, facial droop (On the right side, improved compare to yesterday). Absent: altered, pronater drift, speech deficit - Skin Skin exam: Present: dry, intact <Miles Moore - Last Filed: 10/27/16 16:38> Date of Encounter: 10/27/16 Procedures/tests Complete & Pending: Procedures Performed prior 72 hours Category Date Time Status thyroid ultrasound [US thyroid] [US] Routine Exams 10/26/16 14:30 Completed MR head/brain wo con [MR] Routine MRI 10/26/16 04:40 Completed ECG 12 lead ECG [ECG] Routine Y 10/26/16 01:19 Completed EV echocardiogram Routine Y 10/26/16 04:40 Completed Date of admission: 10/26/16 00:28 Primary care physician: Priscilla [facility] Consults: 10/26/16 04:40 Consult to Neurology [CONS] Routine Consulting Provider: [facility] Reason for Consult: Right facial weakness / CVA Call Completed: No Consult to Physical Therapy [CONS] Routine Comment: Evaluate, develop and implement POC Reason for Consult: eval and treat Consult to Speech Therapy [CONS] Routine Comment: Evaluate, develop and implement POC Reason for Consult: Right facial weakness / CVA Call Completed: No Hospital course: Ms. Barfield is a 85 year old female - Time Spent with Patient Total time spent providing and/or coordinating discharge services: - Constitutional Vitals: Temp Pulse Resp BP Pulse Ox 97.7 F 98 15 127/87 93 10/27/16 06:37 10/27/16 06:37 10/27/16 06:37 10/27/16 06:37 10/27/16 06:37 - Attending Attestation I saw and examined pt. I have discussed with Resident Dr Delvalle regarding pt's management plan. I agree with the documentation. Pt is stable, neurology saw pt andrecommendation followed, ie, discharge pt with taper down prednisone and acyclovir. Pt was found thyroid nodules and need FNA, she is aware and will f/u with PCP for outpatient management. Pt has paraxamal A Fib, now sinus rhythem, off anticoagulation now, risk and benefit discussed with pt regarding anticoagulation, she understand and decide to cont ASA 81mg po daily.
--- NOTE | 2016-10-27 12:37 | Electrocardiograph Report ---
[address] [address] Test Date: 2016-10-26 Pat Name: Noemí Barfield Department: 111 Room: 2NE30 Gender: F Radioisotope Technician: [facility] : 1930 Requested By: Miles Moore Order Number: [id number] Reading MD: Zeferino Astudillo Measurements Intervals [place] Rate: 92 P: 61 AL: 181 QRS: 71 QRSD: 99 T: 63 QT: 353 QTc: 403 Interpretive Statements SINUS RHYTHM Electronically Signed On 10-27-2016 12:35:38 EDT by Zeferino Astudillo
== END 2016-10-27 12:21 | disposition home or self-care (01) ==
LOC: 2NENU 22:16 → EMEROO 22:16 → 2NENU 10-26 00:46
PROVIDERS: ADMIT Internal Medicine; ATTEND Internal Medicine